=== PATIENT | female | born 1970 | race American Indian/Alaskan Native ===

== ENCOUNTER 2018-09-25 16:58 | Emergency (ER) | payer MEDICARE ==
[2018-09-25 17:09] VITALS: BP 104/78
--- NOTE | 2018-09-25 18:31 | Emergency Department Report ---
ED Abdominal Pain HPI - General Chief Complaint: Abdominal Pain Stated Complaint: ABD PAIN Time Seen by Provider: 09/25/18 17:52 Source: patient Mode of arrival: Wheelchair Limitations: No Limitations - History of Present Illness MD Complaint: abdominal pain -: year(s) (2) Location: RLQ (known history of pelvic pain due to ovarian cyst and uterine issues. due for surgery and havent had due to being scared ) Radiation: RLQ Severity: moderate, severe (pain flucuates from mild to severe and has worsen from baseline in the last 2-3 days. But this usuaual as often has flare ups about 3 per year. ) Consistency: constant Improves With: other (narcotic pain medicaitons) Worsens With: medication, movement Associated Symptoms: nausea. denies: chills, dysuria, hematemesis, melena, hematuria, anorexia - Related Data Previous Rx's Medication Instructions Recorded Last Taken Type Ketorolac [Toradol] 10 mg PO Q6H PRN #15 tablet 09/25/18 Unknown Rx Ondansetron [Zofran ODT TAB] 8 mg PO Q12HR #14 tab.rapdis 09/25/18 Unknown Rx Allergies Allergy/AdvReac Type Severity Reaction Status Date / Time No Known Allergies Allergy Unverified 09/25/18 17:09 ED Review of Systems ROS: Stated complaint: ABD PAIN Other details as noted in HPI Constitutional: denies: chills, fever Eyes: denies: eye pain, eye discharge, vision change ENT: denies: ear pain, throat pain Respiratory: denies: cough, shortness of breath, wheezing Cardiovascular: denies: chest pain, palpitations Endocrine: no symptoms reported Gastrointestinal: abdominal pain. denies: nausea, diarrhea Genitourinary: denies: urgency, dysuria, discharge Musculoskeletal: denies: back pain, joint swelling, arthralgia Skin: denies: rash, lesions Neurological: denies: headache, weakness, paresthesias Psychiatric: denies: anxiety, depression Hematological/Lymphatic: denies: easy bleeding, easy bruising ED Past Medical Hx - Past Medical History Previous Medical History?: Yes Additional medical history: Ovarian cyst - Surgical History Past Surgical History?: Yes Additional Surgical History: back surgery - Social History Smoking Status: Current Every Day Smoker Substance Use Type: None - Medications Home Medications: Home Medications Medication Instructions Recorded Confirmed Last Taken Type Ketorolac [Toradol] 10 mg PO Q6H PRN #15 tablet 09/25/18 Unknown Rx Ondansetron [Zofran ODT TAB] 8 mg PO Q12HR #14 tab.rapdis 09/25/18 Unknown Rx ED Physical Exam - General Limitations: No Limitations General appearance: alert, in no apparent distress - Head Head exam: Present: atraumatic, normocephalic - Eye Eye exam: Present: normal appearance, PERRL - ENT ENT exam: Present: mucous membranes moist - Neck Neck exam: Present: normal inspection, full ROM - Respiratory Respiratory exam: Present: normal lung sounds bilaterally. Absent: respiratory distress, wheezes, rales, rhonchi, chest wall tenderness, accessory muscle use, decreased breath sounds - Cardiovascular Cardiovascular Exam: Present: regular rate, normal rhythm. Absent: systolic murmur, diastolic murmur, rubs, gallop - GI/Abdominal GI/Abdominal exam: Present: soft, tenderness (lower abdomen. soft. no destension. ), normal bowel sounds, other (no cullens or steele quick. no rovsing. ). Absent: guarding, hyperactive bowel sounds, hypoactive bowel sounds, pulsatile mass, hernia - Extremities Exam Extremities exam: Present: normal inspection, full ROM - Back Exam Back exam: Present: normal inspection. Absent: CVA tenderness (R), CVA tenderness (L), muscle spasm, paraspinal tenderness - Neurological Exam Neurological exam: Present: alert, oriented X3, CN II-XII intact, normal gait - Psychiatric Psychiatric exam: Present: normal affect, normal mood. Absent: flat affect, man ic - Skin Skin exam: Present: warm, dry, intact, normal color. Absent: rash ED Course Vital Signs 09/25/18 09/25/18 17:07 19:13 Temperature 97.7 F Pulse Rate 74 Respiratory 20 18 Rate Blood Pressure 104/78 O2 Sat by Pulse 99 Oximetry - Reevaluation(s) Reevaluation #1: 09/25/18 21:37 Pain is improved not totally resolved. No current nausea. Patient tolerate oral was requesting to eat. She is ambulatory no acute acute distress. On the phone, extending in talking with no signs of any discomfort ED Medical Decision Making - Lab Data Result diagrams: 09/25/18 19:00 09/25/18 19:00 - Medical Decision Making has an appointment with her provider Oct 05 for this pelvic pain follow-up states primary reason for visit is to get something for pain. Critical care attestation.: If time is entered above; I have spent that time in minutes in the direct care of this critically ill patient, excluding procedure time. ED Disposition Clinical Impression: Chronic pain, Chronic female pelvic pain Disposition: TO HOME OR SELFCARE Is pt being admited?: No Does the pt Need Aspirin: No Condition: Stable Instructions: Abdominal Pain (ED) Prescriptions: Ketorolac [Toradol] 10 mg PO Q6H PRN #15 tablet PRN Reason: Pain Ondansetron [Zofran ODT TAB] 8 mg PO Q12HR #14 tab.rapdis Referrals: PRIMARY CARE, [Primary Care Provider] - 3-5 Days ([facility] and with your [facility] [employer] and primary care later this week for reevaluation of her chronic pelvic pain and further discussion about surgical intervention, which apparently have delayed.)
[2018-09-25] MEDS ORDERED: ZOFRAN IV STA (18:33)
[2018-09-25] MEDS ORDERED: NACL 0.9% 1000 ML 1,000 ML IV ONE (18:33)
[2018-09-25] MEDS ORDERED: TORADOL IV STA (18:33)
[2018-09-25 19:12] LABS: Basophils % (Auto) 0.9 % (0.0-1.8); Eosinophils # (Auto) 0.1 K/mm3 (0.0-0.4); Eosinophils % (Auto) 1.9 % (0.0-4.3); Hematocrit 39.2 % (30.3-42.9); Hemoglobin 13.1 gm/dl (10.1-14.3); Lymphocytes % (Auto) 54.6 % (13.4-35.0); Mean Corpuscular HGB Conc 33 % (30-34); Mean Corpuscular Volume 90 fl (79-97); Monocytes # (Auto) 0.4 K/mm3 (0.0-0.8); Monocytes % (Auto) 6.8 % (0.0-7.3); Platelet Count 295 K/mm3 (140-440); Red Blood Count 4.36 M/mm3 (3.65-5.03); Red Cell Distribution Width 13.9 % (13.2-15.2)
[2018-09-25 19:32] LABS: Alanine Aminotransferase 12 units/L (7-56); Albumin 4.2 g/dL (3.9-5); BUN/Creatinine Ratio 20; Blood Urea Nitrogen 12 mg/dL (7-17); Calcium 8.8 mg/dL (8.4-10.2); Hemolysis Index 9
[2018-09-25 19:40] LABS: Bilirubin,Urine NEG (Negative); Blood,Urine NEG (Negative); Color,Urine Yellow (Yellow); Mucus,Urine FEW /HPF; Protein,Urine <15 mg/dL mg/dL (Negative); Urobilinogen,Urine < 2.0 mg/dL (<2.0)
[2018-09-25 19:43] LABS: HCG Qualitative,Urine Negative (Negative)
[2018-09-25] MEDS ORDERED: SUBLIMAZE IV ONE (19:55)
[2018-09-25] MEDS ORDERED: HYDROGEN PEROXIDE ONE (20:09)
[2018-09-25] MEDS ORDERED: PERCOCET 5/325 PO STA (21:36)
[2018-09-26] MEDS ORDERED: HYDROGEN PEROXIDE TP ONE (02:48)
== END 2018-09-25 22:02 | disposition home or self-care (01) ==
LOC: ED 16:58
DX: R10.2 Pelvic and perineal pain (principal); G89.29 Other chronic pain; F17.200 Nicotine dependence, unspecified, uncomplicated; R19.7 Diarrhea, unspecified
CPT/HCPCS: 36415; 80053; 81001; 81025; 85025; 96361; 96374; 96375; 99284; J1885; J2405; J3010; J7030

== ENCOUNTER 2018-11-18 15:17 | Emergency (ER) | payer MEDICARE ==
[2018-11-18] MEDS ORDERED: IBUPROFEN PO ONE (17:32)
[2018-11-18] MEDS ORDERED: TYLENOL PO ONE (17:33)
--- NOTE | 2018-11-18 17:33 | Emergency Department Report ---
Chief Complaint: Abdominal Pain Stated Complaint: CHILLS Time Seen by Provider: 11/18/18 17:28 - HPI History of Present Illness: This is a 48 y.o. female that presents with cough, headache, sinus pressure, right pelvic pain, and myalgia x 1 week. - ROS Review of Systems: headache, cough, rhinorrhea, pelvic pain, and body aches - Exam Vital Signs: Vital Signs 11/18/18 16:44 Temperature 97.9 F Pulse Rate 77 Respiratory 20 Rate Blood Pressure 134/86 [Right] O2 Sat by Pulse 99 Oximetry Physical Exam: Abdomen: suprapubic tenderness, soft, and BSx4 MSE screening note: Focused history and physical exam performed. Due to findings the following was ordered: labs and US of pelvic Given analgesics. Further evaluation in fast track. ED Disposition for MSE Condition: Stable Instructions: Abdominal Pain (ED)
[2018-11-18 18:09] LABS: Basophils # (Auto) 0.1 K/mm3 (0.0-0.1); Eosinophils # (Auto) 0.1 K/mm3 (0.0-0.4); Eosinophils % (Auto) 1.3 % (0.0-4.3); Hematocrit 38.9 % (30.3-42.9); Hemoglobin 13.1 gm/dl (10.1-14.3); Lymphocytes # (Auto) 2.6 K/mm3 (1.2-5.4); Lymphocytes % (Auto) 45.4 % (13.4-35.0); Mean Corpuscular HGB Conc 34 % (30-34); Mean Corpuscular Volume 90 fl (79-97); Monocytes # (Auto) 0.5 K/mm3 (0.0-0.8); Monocytes % (Auto) 9.4 % (0.0-7.3); Platelet Count 295 K/mm3 (140-440); Red Blood Count 4.32 M/mm3 (3.65-5.03); Red Cell Distribution Width 13.5 % (13.2-15.2)
[2018-11-18 18:26] LABS: Alanine Aminotransferase 13 units/L (7-56); Albumin 3.8 g/dL (3.9-5); BUN/Creatinine Ratio 14; Blood Urea Nitrogen 10 mg/dL (7-17); Hemolysis Index 16
[2018-11-18] MEDS ORDERED: TORADOL IM ONE (19:42)
--- NOTE | 2018-11-18 19:57 | Emergency Department Report ---
ED Abdominal Pain HPI - General Chief Complaint: Abdominal Pain Stated Complaint: CHILLS Time Seen by Provider: 11/18/18 17:28 Source: patient Mode of arrival: Ambulatory Limitations: No Limitations - History of Present Illness Initial Comments: Patient is a 48-year-old -Cypriot female who presents for bilateral lower abdominal pain 3 days patient has history ovarian cystor bleeding no nausea vomiting no fever chills patient tolerated by mouth intake without symptoms at this time. MD Complaint: abdominal pain Onset/Timin -: days(s), unknown (acute on chronic ) Location: LLQ, RLQ Radiation: LLQ, RLQ Migration to: no migration Severity: moderate Severity scale (0 -10): 6 Quality: aching Consistency: intermittent Improves With: nothing Worsens With: nothing Associated Symptoms: denies other symptoms - Related Data LMP Date: 11/11/18 Previous Rx's Medication Instructions Recorded Last Taken Type Ketorolac [Toradol] 10 mg PO Q6H PRN #15 tablet 09/25/18 Unknown Rx Ondansetron [Zofran ODT TAB] 8 mg PO Q12HR #14 tab.rapdis 09/25/18 Unknown Rx Ibuprofen 800 mg PO TID PRN #30 tablet 11/18/18 Unknown Rx Nitrofurantoin Addison/M-Cryst 100 mg PO BID 7 Days #14 capsule 11/18/18 Unknown Rx [Macrobid CAP] Allergies Allergy/AdvReac Type Severity Reaction Status Date / Time No Known Allergies Allergy Verified 11/18/18 15:19 ED Review of Systems ROS: Stated complaint: CHILLS Other details as noted in HPI Constitutional: denies: chills, fever Eyes: denies: eye pain, eye discharge, vision change ENT: denies: ear pain, throat pain Respiratory: denies: cough, shortness of breath, wheezing Cardiovascular: denies: chest pain, palpitations Endocrine: no symptoms reported Gastrointestinal: abdominal pain. denies: nausea, vomiting, diarrhea, constipation, hematemesis, melena, hematochezia Genitourinary: denies: urgency, dysuria, discharge Musculoskeletal: denies: back pain, joint swelling, arthralgia Skin: denies: rash, lesions Neurological: denies: headache, weakness, paresthesias Psychiatric: denies: anxiety, depression Hematological/Lymphatic: denies: easy bleeding, easy bruising ED Past Medical Hx - Past Medical History Additional medical history: Ovarian cyst - Surgical History Additional Surgical History: back surgery - Social History Smoking Status: Current Every Day Smoker Substance Use Type: Alcohol, Marijuana - Medications Home Medications: Home Medications Medication Instructions Recorded Confirmed Last Taken Type Ketorolac [Toradol] 10 mg PO Q6H PRN #15 tablet 09/25/18 Unknown Rx Ondansetron [Zofran ODT TAB] 8 mg PO Q12HR #14 tab.rapdis 09/25/18 Unknown Rx Ibuprofen 800 mg PO TID PRN #30 tablet 11/18/18 Unknown Rx Nitrofurantoin Addison/M-Cryst 100 mg PO BID 7 Days #14 capsule 11/18/18 Unknown Rx [Macrobid CAP] ED Physical Exam - General Limitations: No Limitations General appearance: alert, in no apparent distress - Head Head exam: Present: atraumatic, normocephalic - Eye Eye exam: Present: normal appearance, PERRL, EOMI Pupils: Present: normal accommodation - ENT ENT exam: Present: normal exam, mucous membranes moist - Neck Neck exam: Present: normal inspection - Respiratory Respiratory exam: Present: normal lung sounds bilaterally. Absent: respiratory distress, wheezes, stridor, chest wall tenderness - Cardiovascular Cardiovascular Exam: Present: regular rate, normal rhythm, normal heart sounds. Absent: systolic murmur, diastolic murmur, rubs, gallop - GI/Abdominal GI/Abdominal exam: Present: soft, normal bowel sounds. Absent: distended, tenderness, guarding, rebound, rigid, bruit, hernia - Rectal Rectal exam: Present: deferred - Extremities Exam Extremities exam: Present: normal inspection, full ROM, normal capillary refill. Absent: tenderness, joint swelling, calf tenderness - Back Exam Back exam: Present: normal inspection, full ROM. Absent: tenderness, CVA tenderness (R), CVA tenderness (L), muscle spasm, paraspinal tenderness, vertebral tenderness, rash noted - Neurological Exam Neurological exam: Present: alert, oriented X3, CN II-XII intact, normal gait, reflexes normal - Psychiatric Psychiatric exam: Present: normal affect, normal mood - Skin Skin exam: Present: warm, dry, intact, normal color. Absent: rash ED Course Vital Signs 11/18/18 11/18/18 16:44 17:29 Temperature 97.9 F 97.9 F Pulse Rate 77 77 Respiratory 20 20 Rate Blood Pressure 134/86 Blood Pressure 134/86 [Right] O2 Sat by Pulse 99 99 Oximetry ED Medical Decision Making - Lab Data Result diagrams: 11/18/18 17:40 11/18/18 17:40 Labs 11/18/18 11/18/18 11/18/18 17:40 17:40 17:41 WBC 5.7 RBC 4.32 Hgb 13.1 Hct 38.9 MCV 90 MCH 30 MCHC 34 RDW 13.5 Plt Count 295 Lymph % (Auto) 45.4 H Addison % (Auto) 9.4 H Eos % (Auto) 1.3 Baso % (Auto) 1.0 Lymph # 2.6 Addison # 0.5 Eos # 0.1 Baso # 0.1 Seg Neutrophils % 42.9 Seg Neutrophils # 2.5 Sodium 138 Potassium 4.0 Chloride 100.1 Carbon Dioxide 24 Anion Gap 18 BUN 10 Creatinine 0.7 Estimated GFR > 60 BUN/Creatinine Ratio 14 Glucose 85 Calcium 9.0 Total Bilirubin 0.20 AST 13 ALT 13 Alkaline Phosphatase 83 Total Protein 7.2 Albumin 3.8 L Albumin/Globulin Ratio 1.1 HCG, Qual Negative Urine Color Urine Turbidity Urine pH Ur Specific [place] Urine Protein Urine Glucose (UA) Urine Ketones Urine Blood Urine Nitrite Urine Bilirubin Urine Urobilinogen Ur Leukocyte Esterase Urine WBC (Auto) Urine RBC (Auto) U Epithel Cells (Auto) Urine Bacteria (Auto) Urine Mucus 11/18/18 19:41 WBC RBC Hgb Hct MCV MCH MCHC RDW Plt Count Lymph % (Auto) Addison % (Auto) Eos % (Auto) Baso % (Auto) Lymph # Addison # Eos # Baso # Seg Neutrophils % Seg Neutrophils # Sodium Potassium Chloride Carbon Dioxide Anion Gap BUN Creatinine Estimated GFR BUN/Creatinine Ratio Glucose Calcium Total Bilirubin AST ALT Alkaline Phosphatase Total Protein Albumin Albumin/Globulin Ratio HCG, Qual Urine Color Yellow Urine Turbidity Slightly-cloudy Urine pH 5.0 Ur Specific [place] 1.035 H Urine Protein 30 mg/dl Urine Glucose (UA) Neg Urine Ketones Neg Urine Blood Neg Urine Nitrite Neg Urine Bilirubin Neg Urine Urobilinogen < 2.0 Ur Leukocyte Esterase Mod Urine WBC (Auto) 15.0 H Urine RBC (Auto) 8.0 U Epithel Cells (Auto) 7.0 Urine Bacteria (Auto) 1+ Urine Mucus 3+ - Radiology Data Radiology results: image reviewed US pending - Medical Decision Making Ua: mod leuk, wbc, plan tx for UTI, pt advises she can no longer wait for US results , however she does confirm hx of ovarian cyst right , there is no vaginal bleeding or discharge, pt will follow up with [facility] in 2-3 days as previously schedued will start macrobid for UTI tonight, pt verbalized agreement and understanding of discharge plan for dc to home in stable condition at this time. Critical care attestation.: If time is entered above; I have spent that time in minutes in the direct care of this critically ill patient, excluding procedure time. ED Disposition Clinical Impression: UTI (urinary tract infection) Qualifiers: Urinary tract infection type: acute cystitis Hematuria presence: without hematuria Qualified Code(s): N30.00 - Acute cystitis without hematuria Disposition: DC-01 TO HOME OR SELFCARE Is pt being admited?: No Does the pt Need Aspirin: No Condition: Stable Instructions: Abdominal Pain (ED) Prescriptions: Ibuprofen 800 mg PO TID PRN #30 tablet PRN Reason: pain Nitrofurantoin Addison/M-Cryst [Macrobid CAP] 100 mg PO BID 7 Days #14 capsule [facility]: [facility] [Primary Care Provider] - 3-5 Days Forms: Work/School Release Form(ED) Time of Disposition: 21:51
[2018-11-18 20:03] LABS: Bacteria,Urine 1+ /HPF (Negative); Bilirubin,Urine NEG (Negative); Blood,Urine NEG (Negative); Color,Urine Yellow (Yellow); Mucus,Urine 3+ /HPF; Urobilinogen,Urine < 2.0 mg/dL (<2.0)
[2018-11-18 21:54] VITALS: BP 130/70
--- NOTE | 2018-11-18 21:57 | Ultrasound Report ---
PROCEDURE: US PELVIC COMPLETE TECHNIQUE: Real-time transabdominal sonography in multiple planes of the pelvis was performed. The p elvic structures were not optimally visualized. Transvaginal sonography was then performed to better evaluate the structures and/or abnormalities described below with image documentation. Grayscale, col or flow Doppler imaging, and velocity spectral waveform analysis of the ovaries was employed (duplex imaging). HISTORY: pelvic pain COMPARISONS: None . FINDINGS: UTERUS Size: 7.5 x 5.3 x 5.2 cm. Endometrial thickness: 7.9 mm. Orientation: anteverted. Cervix: Normal. Fibroids/masses: There is an intramural fibroid in the posterior body measuring 1.9 cm.. RIGHT Ovary: 4 x 2.6 x 2.8 cm. Appearance: There is a 1.3 cm cyst.. Doppler images: Normal spectral waveforms and color flow images of the arterial inflow and venous out flow.. LEFT Ovary: 2.3 x 1.4 x 2.0 cm. Appearance: Normal. Doppler images: Normal spectral waveforms and color flow images of the arterial inflow and venous out flow.. Pelvic fluid: None. IMPRESSION: Incidental uterine fibroid. There is no ovarian torsion or mass. There is no free fluid.. This document is electronically signed by Scooter Tolentino MD., November 18 2018 09:53:49 PM ET
--- NOTE | 2018-11-18 21:57 | Ultrasound Report ---
PROCEDURE: US TRANSVAGINAL TECHNIQUE: Transvaginal sonography with image documentation. Grayscale, color flow Doppler imaging, and velocity spectral waveform analysis of the ovaries was employed (duplex imaging). HISTORY: pelvic pain COMPARISONS: None . FINDINGS: UTERUS Size: 7.5 x 5.3 x 5.2 cm. Endometrial thickness: 7.9 mm. Orientation: anteverted. Cervix: Normal. Fibroids/masses: There is an intramural fibroid in the posterior body measuring 1.9 cm.. RIGHT Ovary: 4 x 2.6 x 2.8 cm. Appearance: There is a 1.3 cm cyst.. Doppler images: Normal spectral waveforms and color flow images of the arterial inflow and venous out flow.. LEFT Ovary: 2.3 x 1.4 x 2.0 cm. Appearance: Normal. Doppler images: Normal spectral waveforms and color flow images of the arterial inflow and venous out flow.. Pelvic fluid: None. IMPRESSION: Incidental uterine fibroid. There is no ovarian torsion or mass. There is no free fluid.. This document is electronically signed by Scooter Tolentino MD., November 18 2018 09:54:31 PM ET
== END 2018-11-18 21:54 | disposition home or self-care (01) ==
LOC: ED 15:17
DX: N30.00 Acute cystitis without hematuria (principal); F17.200 Nicotine dependence, unspecified, uncomplicated; F12.10 Cannabis abuse, uncomplicated
CPT/HCPCS: 36415; 76830; 76856; 80053; 81001; 84703; 85025; 96372; 99284; J1885